=== PATIENT | female | born 1945 | race Caucasian/White ===

== ENCOUNTER 2016-08-25 11:31 | Outpatient (CLI) | payer MEDICARE, BC | END 2016-08-25 11:32 | disposition home or self-care (01) | DX: R05 Cough (principal); R09.02 Hypoxemia ==

== ENCOUNTER 2016-09-25 12:48 | Outpatient (CLI) | payer MEDICARE, BC | END 2016-09-25 12:49 | disposition home or self-care (01) | DX: R06.00 Dyspnea, unspecified (principal); J98.11 Atelectasis; K76.0 Fatty (change of) liver, not elsewhere classified; I51.7 Cardiomegaly ==

== ENCOUNTER 2016-10-11 08:58 | Outpatient (CLI) | payer MEDICARE, BC | END 2016-10-11 08:59 | disposition home or self-care (01) | LOC: RT 08:58 | PROVIDERS: ATTEND Internal Medicine | DX: M35.1 Other overlap syndromes (principal); R09.02 Hypoxemia; R06.00 Dyspnea, unspecified | CPT/HCPCS: 36415; 83880; 94010; 94664; 94729 ==

== ENCOUNTER 2016-11-11 15:29 | Outpatient (CLI) | payer MEDICARE, BC | END 2016-11-11 15:30 | disposition home or self-care (01) | LOC: SC 15:29 | PROVIDERS: ATTEND Internal Medicine Pulmonary Disease | DX: G47.10 Hypersomnia, unspecified (principal); G47.8 Other sleep disorders; R06.83 Snoring; G47.00 Insomnia, unspecified | CPT/HCPCS: 99203; G0463; 99212 ==

== ENCOUNTER 2016-12-09 19:27 | Outpatient (CLI) | payer MEDICARE, BC | END 2016-12-09 19:28 | disposition home or self-care (01) | LOC: SC 19:27 | PROVIDERS: ATTEND Internal Medicine Pulmonary Disease | DX: G47.33 Obstructive sleep apnea (adult) (pediatric) (principal) | CPT/HCPCS: 95810 ==

== ENCOUNTER 2016-12-24 13:51 | Outpatient (CLI) | payer MEDICARE, BC | END 2016-12-24 13:52 | disposition home or self-care (01) | LOC: SC 13:51 | PROVIDERS: ATTEND Nurse Practitioner Family | DX: G47.33 Obstructive sleep apnea (adult) (pediatric) (principal); R09.02 Hypoxemia | CPT/HCPCS: 99214; G0463; 99212 ==

== ENCOUNTER 2017-01-23 23:32 | Outpatient (CLI) | payer MEDICARE, BC | END 2017-01-23 23:33 | disposition home or self-care (01) | LOC: SC 23:32 | PROVIDERS: ATTEND Internal Medicine Pulmonary Disease | DX: G47.33 Obstructive sleep apnea (adult) (pediatric) (principal); R09.02 Hypoxemia | CPT/HCPCS: 95811 ==

== ENCOUNTER 2017-02-11 13:09 | Outpatient (CLI) | payer MEDICARE, BC | END 2017-02-11 13:10 | disposition home or self-care (01) | LOC: SC 13:09 | PROVIDERS: ATTEND Nurse Practitioner Family | DX: G47.33 Obstructive sleep apnea (adult) (pediatric) (principal); R09.02 Hypoxemia | CPT/HCPCS: 99214; G0463; 99212 ==

== ENCOUNTER 2017-02-14 12:59 | Outpatient (CLI) | payer MEDICARE, BC ==
[2017-02-14] MEDS ORDERED: IOPAMIDOL-300 100 ML VIAL ONE (13:17)
--- NOTE | 2017-02-16 09:13 | CT Report ---
EXAM: CT CHEST HIGH-RESOLUTION WITHOUT CONTRAST EXAM DATE: 02/14/2017 01:46 PM. CLINICAL HISTORY: Continued hypoxia and fatigue. COMPARISON: Chest CT 09/25/2016. TECHNIQUE: High-resolution CT was performed utilizing thin section imaging in supine and prone positi on. Multiaxial helical CT imaging was performed through the chest. IV contrast: None. Reconstructions : Coronal and sagittal. In accordance with CT protocol optimization, one or more of the following dose reduction techniques w ere utilized for this exam: automated exposure control, adjustment of mA and/or KV based on patient s ize, or use of iterative reconstructive technique. FINDINGS: Stable 4 mm calcified anterior right upper lobe lung nodule, series 7 image 31. Stable 3 mm posterolateral right lower lobe lung nodule, image 33. Calcified right middle lobe granuloma on coronal MIP image 17. Diskoid anterior right lower lobe atelectasis. There is air-trapping within both lower lobes on expiratory series. Mild diskoid posterior right lower lobe opacity persists on prone inspiratory imaging. Possible scarr ing. Borderline cardiomegaly. No pericardial effusion. No bulky mediastinal adenopathy. Within the visualized upper abdomen, note is made of diffuse fatty liver infiltration. Normal adrenal glands. Spleen is not enlarged. IMPRESSION: 1. Areas of air trapping in bilateral lower lobes. No underlying interstitial abnormality evident. Qu estion asthma or other cause. 2. Stable 4 mm right upper lobe and 3 mm right lower lobe lung nodules. Fleischner 2017 Society guide lines suggest no routine follow-up for low risk patient, however optional 12 month follow-up CT for h igh risk patient. 3. Fatty liver. [facility] Referring Provider Line: [phone] SITE ID: [id number]
== END 2017-02-14 13:00 | disposition home or self-care (01) ==
LOC: DI 12:59
PROVIDERS: ATTEND Internal Medicine
DX: R91.8 Other nonspecific abnormal finding of lung field (principal); K76.0 Fatty (change of) liver, not elsewhere classified
CPT/HCPCS: 71250

== ENCOUNTER 2017-03-30 13:51 | Outpatient (CLI) | payer MEDICARE, BC | END 2017-03-30 13:52 | disposition home or self-care (01) | LOC: SC 13:51 | PROVIDERS: ATTEND Nurse Practitioner Family | DX: G47.33 Obstructive sleep apnea (adult) (pediatric) (principal) | CPT/HCPCS: 99215; G0463; 99212 ==

== ENCOUNTER 2017-07-02 22:12 | Outpatient (CLI) | payer MEDICARE, BC | END 2017-07-02 22:13 | disposition home or self-care (01) | LOC: SC 22:12 | PROVIDERS: ATTEND Internal Medicine Pulmonary Disease | DX: G47.33 Obstructive sleep apnea (adult) (pediatric) (principal); R09.02 Hypoxemia | CPT/HCPCS: 95811 ==

== ENCOUNTER 2017-08-03 11:18 | Outpatient (CLI) | payer MEDICARE, BC | END 2017-08-03 11:19 | disposition home or self-care (01) | LOC: SC 11:18 | PROVIDERS: ATTEND Nurse Practitioner Family | DX: G47.33 Obstructive sleep apnea (adult) (pediatric) (principal); R09.02 Hypoxemia | CPT/HCPCS: 99214; G0463; 99212 ==

== ENCOUNTER 2018-04-06 13:14 | Outpatient (CLI) | payer MEDICARE, BC | END 2018-04-06 13:15 | disposition home or self-care (01) | LOC: SC 13:14 | PROVIDERS: ATTEND Nurse Practitioner Family | DX: G47.33 Obstructive sleep apnea (adult) (pediatric) (principal); R09.02 Hypoxemia | CPT/HCPCS: 99215; G0463; 99212 ==

== ENCOUNTER 2018-06-02 15:15 | Outpatient (CLI) | payer MEDICARE, BC | END 2018-06-02 15:16 | disposition home or self-care (01) | LOC: SC 15:15 | PROVIDERS: ATTEND Nurse Practitioner Family | DX: G47.33 Obstructive sleep apnea (adult) (pediatric) (principal); R09.02 Hypoxemia | CPT/HCPCS: 99214; G0463; 99212 ==

== ENCOUNTER 2019-07-04 10:38 | Outpatient (CLI) | payer MEDICARE, BC ==
[2019-07-04 11:40] VITALS: BP 136/80
--- NOTE | 2019-07-04 11:40 | SLEEP CARE CONSULTATION ---
Information from patient questionnaire entered by Olya Marques. I have reviewed and concur with the information entered by Olya Marques. This document represents the service I personally performed and the decisions made by me, Renuka Wright, RN, MSN, PRESIDENT. History of Present Illness Previous diagnosis: Mild (having problems getting supplies despite repeated attempts ), Obstructive Sleep Apnea-Hypopnea Syndrome AHI: 7.6 Reason for follow up: annual (last seen 2019) Equipment type: CPAP Equipment obtained from: [facility] [facility] Mask style: Nasal (Dreamwear) Mask brand: Respironics Backup mask available: No (keep current mask when replaced) Last cushion change: several months ago or more CPAP Compliance Data - Data Reviewed with Patient Average duration of nightly device use: 8.75 Compliance rate %: 96.1 (180 days) Current pressure setting (cmH2O): 8-12 Humidity settin Heated hose settin Average residual AHI: 0.9 Average large leak: 4 sec Subjective Missed days of use due to: reports: travel, other (power outage ) Patient concerns: reports: air blowing in eyes (mask dislodges in sleep), nasal congestion, dry mouth, nose, throat, other (intermittent tension headache for years. ). denies: aerophagia, mask discomfort, mask leak noise, condensation in mask/hose, epistaxis Observed to snore while using device: No Current pressure setting perceived as: comfortable On therapy, patient: reports: other (no change) Initial [place] Sleepiness Scale score: 6 Current [place] Sleepiness Scale score: 4 Allergies and Home Medications Known drug allergies: No Home medication list reviewed: Yes Allergy and home medication list: Medication Name (generic/name brand) Strength & Dosage Temazepam 15mg tab 1-2 at bedtime PRN Escitalopram 5mg tab one or two daily Atenolol 25mg tab daily Vitamin D3 6000Units daily Review of Systems Review of systems same as previous: No (dsypnea evaluated last fall) Physical Exam Blood Pressure: 136/80 Cuff size: long Heart Rate: 68 O2 Saturation: 96 Height: 5 ft 8 in Weight: 221 lb 12.8 oz Weight change since last visit: gained 12 pounds Body Mass Index: 33.7 BMI Classification: Obesity Class 1 Impression and Plan 1. Obstructive Sleep Apnea-Hypopnea Syndrome, mild, with good treatment compliance and good apnea control. On CPAP therapy, the patient has better sleep quality and is more rested overall. To prevent mask from dislodging, I gave her a sample adapted headgear for her mask to try. Since it is hard plastic is some parts which could be uncomfortable per patient, I also gave her Pad A cheek information if she cannot find the cloth covers that are supposed to come with the mask initially. Oral dryness could be from her opening her mouth during sleep per patient but not large mask leaks as generally seen with oral venting. Nasal congestion can be reduced with increasing the CPAP humidity as shown on sample device. The heated hose can be adjusted higher if condensation with higher humidity setting. Saline nasal spray sample was also given to use prior to CPAP to clear nasal secretions and wash off any nasal allergens to facilitate nasal breathing. In addition, a steamy shower before bed will often assist nasal drainage. Control of nasal congestion could reduce oral venting. For patient supply concerns. Patient was notified that another DME can be used. I will have my intake coordinator inform of DME options. A [facility] prescription will then be made. Patient advised to contact this office if further supply problems. Patient has gained weight. Currently patients BMI is 33.7 obesity class Obesity Class 1. Obesity increases the risk of apnea, CPAP pressure requirements and overall health risks especially cardiovascular and diabetes. Thus patient is advised to lose weight. Patient states she knows what to do to lose weight. I discussed how a diet consultation can be helpful in achieving optimal weight loss goals. Patient encouraged to discuss their weight loss goals with their PCP and consider a referral to a tufter hand. The patient's CPAP pressure range should accommodate some weight loss. Symptoms to report for additional pressure adjustment discussed. Patient's apnea severity and rationale for treatment to reduce apnea, improve sleep quality and reduce cardiovascular and cerebrovascular events was reviewed. I also reviewed the benefit of consistent device use of CPAP for hypertension, depression/anxiety. Since patient has more severe apnea in supine position, patient advised to avoid supine sleep with pillow positioning if unable to use CPAP while ill or if without electricity to reduce apnea risk. Patient intermittent headache does not seem to be due to CPAP mask, she states has been evaluated in past. Patient advised to follow up with PCP for further evaluation and guidelines for seeking care. * Continue CPAP pressure at 8-12 cmH2O * Transfer to new DME * Notify me if snoring with mask or feeling that the pressure is too much or too little * Attempt to lose weight * consider a tufter hand * Follow up with PCP re intermittent headache for guidelines * Call this office if any problems using CPAP * Return for follow up in 1 year , or sooner if concerns arise Time Spent with Patient (minutes): 35 I spent 100% of this visit face to face with the patient with greater than 50% of this was spent time counseling the patient and coordination of care.
== END 2019-07-04 10:39 | disposition home or self-care (01) ==
LOC: SC 10:38
PROVIDERS: ATTEND Nurse Practitioner Family
DX: G47.33 Obstructive sleep apnea (adult) (pediatric) (principal); E66.9 Obesity, unspecified; Z68.33 Body mass index [BMI] 33.0-33.9, adult
CPT/HCPCS: 99214; G0463; 99212

== ENCOUNTER 2019-07-18 07:03 | Outpatient (CLI) | payer MEDICARE ==
--- NOTE | 2019-07-19 11:03 | Ultrasound Report ---
Reason: ABNORMAL LEVELS OF OTHER SERUM ENZYMES Procedure Date: 07/18/2019 Accession Number: [id number] / [id number] Procedure: US - Abdomen Limited CPT Code: Final Report FULL RESULT: EXAM: ABDOMEN ULTRASOUND LIMITED, RUQ EXAM DATE: 07/18/2019 07:14 AM. CLINICAL HISTORY: ABNORMAL LEVELS OF OTHER SERUM ENZYMES. COMPARISON: CHEST W/O 02/14/2017 1:33 PM. TECHNIQUE: Real-time scanning was performed with static images obtained. FINDINGS: Liver: The parenchyma is echogenic diffusely. No definite focal masses are identified, but evaluation is limited secondary to the echogenicity. Enlarged right liver lobe, measuring 23 cm craniocaudal. Main portal vein flow: Hepatopetal. Gallbladder: Normal. No stones, wall thickening, or sonographic Maddox's sign. Biliary System: CBD measures 3 mm. No intrahepatic or extrahepatic ductal dilatation. Other: Right kidney measured 14.3 cm longitudinally and showed no evidence for hydronephrosis. A simple appearing inferomedial right renal cyst measured 9.1 x 8.6 x 7.2 cm. IMPRESSION: 1. Enlarged, fatty infiltrated liver. 2. Large simple right renal cyst. [facility]
== END 2019-07-18 07:04 | disposition home or self-care (01) ==
LOC: DI 07:03
PROVIDERS: ATTEND Internal Medicine
DX: K76.0 Fatty (change of) liver, not elsewhere classified (principal); N28.1 Cyst of kidney, acquired
CPT/HCPCS: 76705

== ENCOUNTER 2019-12-20 14:20 | Outpatient (CLI) | payer MEDICARE | END 2019-12-20 14:21 | disposition home or self-care (01) | LOC: COV 14:20 | PROVIDERS: ATTEND Family Medicine | DX: R06.02 Shortness of breath (principal); R53.83 Other fatigue; R19.7 Diarrhea, unspecified; R09.81 Nasal congestion; Z20.828 Contact with and (suspected) exposure to other viral communicable diseases ==

== ENCOUNTER 2021-11-22 08:00 | Outpatient (CLI) | payer MEDICARE ==
[2021-11-22 15:57] LABS: BASOPHILS # (AUTO) 0.1 10^3/uL (0.0-0.1); BASOPHILS % (AUTO) 1.5 %; EOSINOPHILS # (AUTO) 0.4 10^3/uL (0.0-0.7); EOSINOPHILS % (AUTO) 4.1 %; HCT - HEMATOCRIT 45.4 % (37.0-47.0); HGB - HEMOGLOBIN 14.9 g/dL (12.0-16.0); LYMPHOCYTES % (AUTO) 23.2 %; MEAN CORPUSCULAR HEMOGLOBIN 28.7 pg (27.0-31.0); MEAN CORPUSCULAR HGB CONC 32.8 g/dL (32.0-36.0); MEAN CORPUSCULAR VOLUME 87.5 fL (81.0-99.0); MONOCYTES # (AUTO) 0.6 10^3/uL (0.0-1.0); MONOCYTES % (AUTO) 6.9 %; NEUTROPHILS # (AUTO) 5.4 10^3/uL (1.5-6.6); NEUTROPHILS % (AUTO) 63.9 %; PLT - PLATELET COUNT 212 10^3/uL (130-450); RED BLOOD COUNT 5.19 10^6/uL (4.20-5.40); RED CELL DISTRIBUTION WIDTH 13.1 % (12.0-15.0); WHITE BLOOD COUNT 8.5 x10^3/uL (4.8-10.8)
[2021-11-22 16:20] LABS: THYROID STIMULATING HORMONE 3.07 uIU/mL (0.34-5.60)
[2021-11-22 16:22] LABS: FREE T4 (FREE THYROXINE) 0.8 ng/dL (0.58-1.64)
[2021-11-22 17:53] LABS: ALBUMIN 4.7 g/dL (3.2-5.5); ALBUMIN/GLOBULIN RATIO 1.6 (1.0-2.2); ALKALINE PHOSPHATASE 69 IU/L (42-121); ALT ALANINE AMINOTRANSFERASE 32 IU/L (10-60); AST ASPARTATE AMINOTRANSFERASE 30 IU/L (10-42); BILIRUBIN,TOTAL 0.8 mg/dL (0.2-1.0); BUN - BLOOD UREA NITROGEN 14 mg/dL (6-20); CHOLESTEROL 274 mg/dL; CREATININE 0.6 mg/dL (0.4-1.0); GFR - MDRD 98 (>89); HDL CHOLESTEROL 46 mg/dL; LDL CHOLESTEROL,CALCULATED 200 mg/dL; LDL/HDL RATIO 4.3 (<4.4); TOTAL PROTEIN 7.6 g/dL (6.7-8.2); TRIGLYCERIDES 139 mg/dL; VLDL CHOLESTEROL 28 mg/dL
[2021-11-22 18:13] LABS: CALCIUM 9.7 mg/dL (8.5-10.3); CARBON DIOXIDE - CO2 23 mmol/L (21-32); CHLORIDE 104 mmol/L (101-111); GLUCOSE 106 mg/dL (70-100); POTASSIUM 4.2 mmol/L (3.5-5.0); SODIUM 139 mmol/L (135-145)
[2021-11-22 19:13] LABS: ESTIMATED AVERAGE GLUCOSE 128 mg/dL (70-100); HEMOGLOBIN A1c% 6.1 % (4.27-6.07)
[2021-11-23 03:08] LABS: HCV AB <0.1 s/co ratio (0.0-0.9)
== END 2021-11-22 23:59 | disposition home or self-care (01) ==
LOC: LAB.R 08:00
PROVIDERS: ATTEND Internal Medicine
DX: Z00.00 Encounter for general adult medical examination without abnormal findings (principal); F32.A Depression, unspecified; E11.9 Type 2 diabetes mellitus without complications; R06.00 Dyspnea, unspecified; R74.8 Abnormal levels of other serum enzymes; I10 Essential (primary) hypertension; E03.9 Hypothyroidism, unspecified; R20.0 Anesthesia of skin; E66.9 Obesity, unspecified; G47.33 Obstructive sleep apnea (adult) (pediatric); J30.2 Other seasonal allergic rhinitis; Z11.59 Encounter for screening for other viral diseases
CPT/HCPCS: 80053; 80061; 82306; 82607; 83036; 83721; 83880; 84439; 84443; 85025; 86803

== ENCOUNTER 2022-02-25 08:00 | Outpatient (CLI) | payer MEDICARE ==
[2022-02-25 16:58] LABS: CHOL/HDL RATIO 5.7 (<4.4); CHOLESTEROL 233 mg/dL; HDL CHOLESTEROL 41 mg/dL; LDL CHOLESTEROL,CALCULATED 151 mg/dL; LDL/HDL RATIO 3.7 (<4.4); TRIGLYCERIDES 203 mg/dL; VLDL CHOLESTEROL 41 mg/dL
== END 2022-02-25 23:59 | disposition home or self-care (01) ==
LOC: LAB.R 08:00
PROVIDERS: ATTEND Internal Medicine
DX: I10 Essential (primary) hypertension (principal); Z79.899 Other long term (current) drug therapy
CPT/HCPCS: 80061; 83721

== ENCOUNTER 2022-08-15 15:43 | Outpatient (CLI) | payer MEDICARE ==
--- NOTE | 2022-08-15 17:19 | XRAY Report ---
PROCEDURE: Chest 2 View X-Ray INDICATIONS: DYSPNEA,HYPOXIA TECHNIQUE: 2 views of the chest were acquired. COMPARISON: None. FINDINGS: Surgical changes and devices: None. Lungs and pleura: No pleural effusions or pneumothorax. Lungs are clear. Mediastinum: Mediastinal contours are normal. Heart size is normal. Bones and chest wall: No suspicious bony abnormalities. Soft tissues appear unremarkable. IMPRESSION: No acute cardiopulmonary process. Reviewed by: Chris Lala on 08/15/2022 5:17 PM PDT Approved by: Chris Lala on 08/15/2022 5:17 PM PDT Station ID: [id number]
== END 2022-08-15 15:44 | disposition home or self-care (01) ==
LOC: DI 15:43
PROVIDERS: ATTEND Internal Medicine
DX: R06.00 Dyspnea, unspecified (principal); R09.02 Hypoxemia

== ENCOUNTER 2022-08-28 10:53 | Outpatient (CLI) | payer MEDICARE | END 2022-08-28 10:54 | disposition home or self-care (01) | LOC: LAB 10:53 | PROVIDERS: ATTEND Internal Medicine | DX: R06.00 Dyspnea, unspecified (principal); R09.02 Hypoxemia | CPT/HCPCS: 36415; 85379 ==

== ENCOUNTER 2022-08-29 14:03 | Outpatient (CLI) | payer MEDICARE ==
[2022-08-29 14:32] LABS: CREATININE 0.6 mg/dL (0.4-1.0)
[2022-08-29] MEDS ORDERED: iohexoL-300 100 ML VIAL ONE (15:28)
--- NOTE | 2022-08-29 16:23 | CT Report ---
PROCEDURE: ANGIO CHEST W/WO INDICATIONS: POSITIVE D DIMER. Shortness of breath. CONTRAST: 80ml omni 300 TECHNIQUE: After the administration of intravenous contrast, 2 mm axial images were acquired from the pulmonary apices to the posterior costophrenic angles during the arterial phase. In addition, 1 mm lung kernel and 5 mm soft tissue kernel reconstructions were performed. 3-dimensional coronal oblique maximum int ensity projection (MIP) reformats, 8 mm axial MIP, and 5 mm coronal and sagittal MPR reformats were t hen performed through the thorax. For radiation dose reduction, the following was used: automated exp osure control, adjustment of mA and/or kV according to patient size. COMPARISON: CT 02/14/2017 FINDINGS: Image quality: Excellent. Large vessels: No filling defect within the opacified pulmonary arteries. No evidence of acute aortic syndrome. No thoracic aortic aneurysm. Lungs and pleura: No pleural effusions. No pneumothorax. Scattered mm solid nodules, stable since , statistically benign. Mediastinum: Heart size is enlarged. No pericardial effusions. No mediastinal adenopathy by size crit eria. Moderate coronary artery calcifications Chest wall and lower neck: Thyroid is unremarkable. No axillary or supraclavicular adenopathy by size . Bones: No aggressive osseous abnormality. Upper Abdomen: Marked hepatic steatosis. IMPRESSION: No pulmonary embolus. Marked hepatic steatosis. Findings were discussed with provider at time of dictation. Reviewed by: Chris Lala on 08/29/2022 4:21 PM PDT Approved by: Chris Lala on 08/29/2022 4:21 PM PDT Station ID: [id number]
[2022-08-29] MEDS ORDERED: iohexoL-300 100 ML VIAL IVP ONE (16:30)
== END 2022-08-29 14:04 | disposition home or self-care (01) ==
LOC: DI 14:03
PROVIDERS: ATTEND Internal Medicine
DX: R79.1 Abnormal coagulation profile (principal); Z79.899 Other long term (current) drug therapy; K76.0 Fatty (change of) liver, not elsewhere classified
CPT/HCPCS: 36415; 71275; 82565; Q9967

== ENCOUNTER 2022-10-01 10:54 | Outpatient (CLI) | payer MEDICARE ==
[2022-10-01 11:28] LABS: ABG BASE EXCESS -0.9 mmol/L (-2.0-3.0); ABG OXYGEN SATURATION 95 % (94-98); ABG PCO2 36 mmHg (34-45); ABG PH 7.42 (7.35-7.45); ABG PO2 74 mmHg (80-100); ABG TCO2 24.1 MMOL/L (21.0-29.0)
== END 2022-10-01 10:55 | disposition home or self-care (01) ==
LOC: RT 10:54
PROVIDERS: ATTEND Internal Medicine
DX: R09.02 Hypoxemia (principal)
CPT/HCPCS: 82803; 94010; 94729

== ENCOUNTER 2022-11-04 14:51 | Outpatient (CLI) | payer MEDICARE | END 2022-11-04 14:52 | disposition home or self-care (01) | LOC: DI 14:51 | PROVIDERS: ATTEND Internal Medicine | DX: R06.00 Dyspnea, unspecified (principal); I49.1 Atrial premature depolarization; I51.7 Cardiomegaly; I34.0 Nonrheumatic mitral (valve) insufficiency; I34.81 Nonrheumatic mitral (valve) annulus calcification; I77.810 Thoracic aortic ectasia | CPT/HCPCS: 93306 ==

== ENCOUNTER 2023-09-11 15:24 | Outpatient (CLI) | payer MEDICARE ==
--- NOTE | 2023-09-11 16:29 | Sleep Patient Instructions ---
Sleep Center Visit Summary - Patient Visit Information Reason for Visit: Initial consult for evaluation of sleep disordered breathing and other sleep issues. - Patient Instructions Additional Instructions: You will be completing a sleep study an in-lab polysomnography (PSG). You will follow-up in the sleep care office after the sleep study is completed to hear the results and talk about therapy, if needed. You will be called by our office staff to schedule this appointment, but you may contact us with any questions. - Clinic Information Contact: [facility] [address] [place] [address] [email or web address] T: [phone]
--- NOTE | 2023-09-11 16:39 | SLEEP CARE CONSULTATION ---
Information from patient questionnaire entered by Amilcar Hull. I have reviewed and concur with the information entered by Amilcar Hull. This document represents the service I personally performed and the decisions made by me, Lata De Los Santos ARNP. History of Present Illness Service Date and Time: 09/11/2023 1524 Reason for Visit: New patient Chief Complaint: reports: Other (Doctor referral - chronic low blood oxygen) Date of Onset: 7 years Usual bedtime: 8:00 PM? Time it takes to fall asleep: 45 minutes Snores at night: Yes (If not using CPAP) Sleeps alone due to snoring: No Number of times waking at night: 2 - 3 Reasons for waking at night: reports: Bathroom, Other (Unknown reason) Toss, Turn, or Twitch while sleeping: No Recalls having dreams: Yes Usually gets out of bed at: 7:00 AM Feels refreshed in the morning: No Morning headache: Yes (Sometimes does not resolve) Sleepy or fatigued during the day: Yes Ever fallen asleep while driving: No Takes day naps: No (Sometimes) Dreams during day naps: No Prior sleep studies: Yes Year and Where: 2016 and 2017 [facility] Type of Sleep Study: Polysomnography Additional HPI information: EM MANJARREZ was previously diagnosed to have mild, AHI 7.6, obstructive sleep apnea-hypopnea syndrome in sleep study dated 12/21/2016 and comes in today to re- establish care for CPAP therapy. She was referred back here because her doctor is concerned about chronic low blood oxygen and feels she needs a new sleep study. - Parasomnia Symptoms Ever been unable to move upon waking from sleep: No Walks in sleep: No Talks in sleep: No Ever acted out dreams in sleep: No Ever felt weak in the knees when startled or emotional: No Bothered by creepy, crawly, restless sensations in legs: No Problems with memory or concentration: Yes CPAP Compliance Data - Data Reviewed with Patient Average duration of nightly device use: 11 hours 27 mins Compliance rate %: 98.3 (180/180 days used) Current pressure setting (cmH2O): 8-12 (avg 9, max 12) Average residual AHI: 0.7 Average large leak: 0 Compliance data discussion: She has a Dreamstation that has not been recertified. She has been getting her supplies online because she did not like dealing with [facility]. She is using a nasal cushion mask, DreamWisp. Subjective Patient concerns: reports: mask discomfort (bothers back of head), mask leak noise, dry mouth, nose, throat (using humidifier). denies: aerophagia, air blowing in eyes, condensation in mask/hose, nasal congestion, epistaxis Observed to snore while using device: No Current pressure setting perceived as: comfortable On therapy, patient: reports: other (does not feel her fatigue is due to the CPAP; always uses her CPAP). denies: drowsiness while driving Initial [place] Sleepiness Scale score: 6 (in 2016) Current [place] Sleepiness Scale score: 7 (in 2023) Past Medical History Past Medical History: reports: Hypertension, Diabetes, Arthritis, Depression Social History The patient is retired. Patient is and lives in [place]. Have you smoked in the past 12 months: No Alcohol use: Yes Alcohol amount and frequency: Less than 1 per day Caffeine use: Yes Caffeine amount and frequency: 2 - 4 cups daily (green tea and coffee) Family History Family history of sleep disordered breathing: No Allergies and Home Medications Known drug allergies: No Drug allergies reviewed: Yes Home medication list reviewed: Yes (as listed) Allergy and home medication list: Allergies No Known Drug Allergies Allergy (Verified 09/09/23 16:25) Home Medications Medication Instructions Recorded Confirmed Last Taken Type Atenolol 50 mg PO DAILY 04/07/14 09/11/23 04/09/14 History Cholecalciferol (Vitamin D3) 2,000 units PO DAILY 04/07/14 09/11/23 04/06/14 History [Vitamin D] Temazepam [Restoril] 7.5 mg PO DAILY 04/07/14 09/11/23 04/08/14 History Escitalopram See Rx Instructions .ROUTE .COMPLEX 09/11/23 09/11/23 Unknown History Jardiance See Rx Instructions .ROUTE .COMPLEX 09/11/23 09/11/23 Unknown History Review of Systems Cardiovascular: reports: high blood pressure (Controlled) Respiratory: reports: shortness of breath, sputum production Urinary: reports: incontinence Neurological: reports: headaches, gait or balance problems Ear/Nose/Throat: reports: dry mouth/throat Endocrine: reports: sluggishness (/tired) Musculoskeletal: reports: joint pain (/stiffness), back pain, mobility problems Physical Exam Vital signs obtained and entered by: Lata Ghotra NP Blood Pressure: 137/82 Cuff size: long (left arm) Heart Rate: 67 O2 Saturation: 92 Height: 5 ft 7 in Weight: 214 lb 12.8 oz Weight change since last visit: 7 lb loss Body Mass Index: 33.6 BMI Classification: Obese Neck circumference: 15.25 Heart: regular rate and rhythm Lungs: clear bilaterally Impression and Plan 1. Obstructive Sleep Apnea-Hypopnea Syndrome, mild, with good treatment compliance and good apnea control. Patient states she uses her machine all the time and so she does not know if she sleeps better with or without it. She does feel it does something for her and uses it regularly. She does have significant improvement of her sleep apnea with using her CPAP with current settings of 8 to 12 cm H2O. She has been obtaining her supplies online because she felt that her last DME was "a racket ". She does have a DreamStation that may be on the recall that she has not registered. She has not had any issues and denies seeing any any black particles in the machine or tubing. Her machine was last updated in 2017. I will write a prescription to update her CPAP but she would like to find a source online to fill that prescription. She will contact us if she has any difficulties or decides to go with a local DME supplier. I am going to order a verifying PSG to get a new baseline and see if there has been any changes since her last study. She agreed with plan of care. Patient's apnea severity and rationale for treatment to reduce apnea, improve sleep quality and reduce cardiovascular and cerebrovascular events was reviewed. I also reviewed the benefit of consistent device use of CPAP for hypertension, diabetes, depression. 2. Obesity, unspecified. Currently patients BMI is 33.6. Obesity increases the risk of apnea, CPAP pressure requirements and overall health risks especially cardiovascular and diabetes. Thus patient is advised to lose weight. * Continue auto CPAP pressure at 8-12 cmH2O * Update machine * PSG to verify diagnosis and severity * Notify me if snoring with mask or feeling that the pressure is too much or too little * Attempt to lose weight * Call this office if any problems using CPAP * Return for follow up after sleep study and for compliance on new device if needed, or sooner if concerns arise Continue with device pressure at (cmH2O): 8-12 Counseling Topics: Weight loss health impact Plan: PSG and followup; follow up with new device as needed Visit Type: In Office Time Spent with Patient (minutes): 44 Provider Statement: I spent 100% of the Face to Face Visit with the patient with greater than 50% spent counseling the patient and coordination of care.
[2023-09-11 16:45] VITALS: BP 137/82; O2SAT 92
== END 2023-09-11 15:25 | disposition home or self-care (01) ==
LOC: SC 15:24
PROVIDERS: ATTEND Nurse Practitioner Family
DX: G47.33 Obstructive sleep apnea (adult) (pediatric) (principal)
CPT/HCPCS: 99203; G0463; 99212

== ENCOUNTER 2023-09-29 19:24 | Outpatient (CLI) | payer MEDICARE | END 2023-09-29 19:25 | disposition home or self-care (01) | LOC: SC 19:24 | PROVIDERS: ATTEND Nurse Practitioner Family | DX: G47.33 Obstructive sleep apnea (adult) (pediatric) (principal); F32.A Depression, unspecified; E11.9 Type 2 diabetes mellitus without complications; I10 Essential (primary) hypertension | CPT/HCPCS: 95810 ==

== ENCOUNTER 2023-10-16 08:07 | Day surgery (SDC) | payer MEDICARE ==
[2023-10-16] MEDS: LACTATED RINGERS 1,000 ML IV ONE ×2 (08:36→11:23)
--- NOTE | 2023-10-16 09:47 | ANESTHESIA ---
Pre-Anesthesia VS, & Labs - Diagnosis screening - Procedure colonoscopy Height: 5 ft 7 in Weight (kg): 94 kg Body Mass Index: 32.4 BMI Classification: Obese - NPO >8 hours - Is Patient ?: No - Lab Results Current Lab Results: Laboratory Tests 10/16/23 08:33: POC Whole Bld Glucose 175 H Home Medications and Allergies Atenolol 50 mg PO DAILY 04/07/14 Cholecalciferol (Vitamin D3) [Vitamin D] 2,000 units PO DAILY 04/07/14 Temazepam [Restoril] 7.5 mg PO DAILY 04/07/14 Escitalopram See Rx Instructions .ROUTE .COMPLEX 09/11/23 Jardiance See Rx Instructions .ROUTE .COMPLEX 09/11/23 Allergies/Adverse Reactions: Allergies Allergy/AdvReac Type Severity Reaction Status Date / Time No Known Drug Allergies Allergy Verified 10/15/23 13:39 Anes History & Medical History - Anesthetic History Anesthesia Complications: reports: No previous complications Family history of Anesthesia Complications: Denies Family history of Malignant Hyperthermia: Denies - Medical History Cardiovascular: reports: Hypertension Pulmonary: reports: Pneumonia, Shortness of breath, Sleep apnea, CPAP use Gastrointestinal: reports: Hiatal hernia, Hemorrhoids, Other Urinary: reports: Incontinence, Other Neuro: reports: None Musculoskeletal: reports: Rheumatoid arthritis, Chronic back pain, Other Endocrine/Autoimmune: reports: Type 2 diabetes, HyPOthyroidism (pt denies) Skin: reports: Other Smoking Status: Never smoker Psychosocial: reports: No issues indicated History of Cancer?: No - Surgical History General: reports: Colonoscopy, Other Eyes Ears Nose Throat (EENT): reports: Tonsil/Adenoidectomy Gynecologic: reports: section, Dilation and currettage Orthopedic: reports: Knee replacement, Arthroscopic surgery Exam General: Alert, Oriented x3, Cooperative Dental: WNL Mouth Openin Fingerbreadth Neck Mobility: Normal Mallampati classification: II Thyromental Distance: less than 4 cm Respiratory: Lungs clear Cardiovascular: Regular rate Plan Anesthesia Type: General, Total IV Consent for Procedure(s) Verified and Reviewed: Yes Code Status: Attempt Resuscitation ASA classification: 2-Mild systemic disease Is this case an emergency?: No
[2023-10-16] MEDS ORDERED: PROPOFOL 500 MG/50 ML 500 MG/50 ML VIAL ONE ×2 (10:11→11:03)
[2023-10-16] MEDS ORDERED: LIDOCAINE-MPF 2% 5 ML VIAL ONE (10:11)
[2023-10-16 11:39] VITALS: BP 125/82; O2SAT 92
--- NOTE | 2023-10-16 13:44 | ANESTHESIA POST OP EVALUATION ---
Anesthesia Post Eval - Post Anesthesia Eval Vitals: Last Vital Signs Temp 36.2 C L 10/16/23 11:23 Pulse 61 10/16/23 11:37 Resp 13 10/16/23 11:37 BP 125/82 H 10/16/23 11:37 Pulse Ox 92 10/16/23 11:37 O2 Flow Rate CV Function Including HR & BP: Stable Pain Control: Satisfactory Nausea & Vomiting: Negative Mental Status: Baseline Respiratory Status: Airway Patent Hydration Status: Satisfactory Anesthesia Complications: None
== END 2023-10-16 08:08 | disposition home or self-care (01) ==
LOC: SDS 08:07
PROVIDERS: ATTEND Surgery
PROC: 0DBM8ZZ Excision of Descending Colon, Via Natural or Artificial Opening Endoscopic (ICD-10-PCS; principal; 2023-10-16 09:30)
DX: Z12.11 Encounter for screening for malignant neoplasm of colon (principal); D12.4 Benign neoplasm of descending colon; K57.30 Diverticulosis of large intestine without perforation or abscess without bleeding; E66.9 Obesity, unspecified; Z68.32 Body mass index [BMI] 32.0-32.9, adult; E11.9 Type 2 diabetes mellitus without complications; Z79.84 Long term (current) use of oral hypoglycemic drugs; G47.30 Sleep apnea, unspecified
CPT/HCPCS: 45380; J7120

== ENCOUNTER 2023-11-10 09:13 | Outpatient (CLI) | payer MEDICARE ==
--- NOTE | 2023-11-10 09:55 | Sleep Patient Instructions ---
Sleep Center Visit Summary - Patient Visit Information Reason for Visit: Sleep study follow-up - Patient Instructions Additional Instructions: You were here for follow up of verifying sleep study which showed mild LUCA. You will be continued on CPAP therapy with pressure at 8-12 cmH2O. We are updating your CPAP, please call us to set up a follow up. We are also setting you up with a new DME and mask refitting. We need to see you a month after using your new CPAP. You may contact us sooner for any questions or concerns. - Clinic Information Contact: [facility] [address] [place] [id number] [email or web address] T: [phone]
--- NOTE | 2023-11-10 10:12 | SLEEP CARE CONSULTATION ---
Information from patient questionnaire entered by Aria Kulkarni. I have reviewed and concur with the information entered by Aria Kulkarni. This document represents the service I personally performed and the decisions made by , Angel De Los Santos ARNP. History of Present Illness Service Date and Time: 11/10/2023912 Initial [place] Sleepiness Scale score: 6 (in 2017) Current [place] Sleepiness Scale score: 9 (11/10/23) Additional HPI information: EM MANJARREZ returns for follow up and results of the recently performed polysomnography on 09/29/2023. I explained the pathophysiology behind obstructive sleep apnea. We then spent quite a bit of time discussing different treatment options. For mild obstructive sleep apnea, surgery and oral appliance are alternatives to nasal CPAP therapy but in moderate or severe cases, nasal CPAP is the most effective and reliable treatment. I reviewed the impact of weight changes on sleep apnea and strongly recommended losing weight. The patient will continue with the nasal CPAP therapy set at 8-12 cmH20 will be ordered with rationale explained. Patient was cautioned about risks of drowsy driving until sleepiness symptoms resolve. Sleep Study - Results Type of Sleep Study: Polysomnography (COMPLETED 09/29/23) Prior sleep studies: Yes Year and Where: 2016 and 2018 [facility] Polysomnography/Home Sleep Study results: IMPRESSION: The quality of the study is good. The patient had reduced sleep efficiency due to prolonged awakenings during the night. The sleep architecture was abnormal for sleep fragmentation and reduced amount of time spent in REM and slow wave sleep (N3). Respiratory monitoring showed mild obstructive sleep apneahypopnea (AHI = 13.8) associated with frequent arousals, oxyhemoglobin desaturation and moderate hypoxia (charlene oxygen saturation of 79%). The respiratory events occurred almost exclusively during supine sleep (supine AHI = 21.9; non-supine = 0.43). Snore was light to moderate in intensity. There was no significant periodic leg movement of sleep. Cardiac rhythm was normal sinus rhythm without significant arrhythmia. No abnormal behavior (parasomnia) observed during the night. Allergies and Home Medications Known drug allergies: No Drug allergies reviewed: Yes Home medication list reviewed: Yes (Jardiance) Allergy and home medication list: Allergies No Known Drug Allergies Allergy (Verified 10/30/23 13:21) Review of Systems Review of systems same as previous: Yes (NO CHANGE) Physical Exam Vital signs obtained and entered by: ANGEL GIRON Blood Pressure: 140/82 (RIGHT ARM) Cuff size: long Heart Rate: 67 O2 Saturation: 95 Height: 5 ft 7 in Weight: 213 lb Body Mass Index: 33.3 BMI Classification: Obese Impression and Plan 1. Obstructive Sleep Apnea-Hypopnea Syndrome, mild, with lowest oxygen saturation of 79%. Continuing with positive pressure therapy could benefit hypertension, diabetes and depression. The patient will be continued on nasal autoCPAP therapy with pressure set at 8-12 cmH2O. Compliance guidelines also reviewed. On CPAP therapy, the patient has better sleep quality and is more rested overall. Patient needs a new CPAP supplier for supplies and machine. I will have my quality coordinator inform of DME options. A DWO prescription will then be made. The patients CPAP is over 5 years old and of reasonable use. Thus, the CPAP will be updated. A DWO prescription will be made. Compliance guidelines for new device and follow up discussed. Patient's apnea severity and rationale for treatment to reduce apnea, improve sleep quality and reduce cardiovascular and cerebrovascular events was reviewed. 2. Hypoxemia, moderate, with a charlene oxygen saturation of 79% and 259 minutes spent under 90%. The baseline oxygen saturation was normal with a low average oxygen saturation of 88%. She is to follow up with her mechanical engineering intern for further evaluation and treatment as needed. 2. Obesity, unspecified. Currently patients BMI is 33.3. Obesity increases the risk of apnea, CPAP pressure requirements and overall health risks especially cardiovascular and diabetes. Thus patient is advised to lose weight. * Continue auto CPAP pressure at 8-12 cmH2O * Transfer DME * Update machine * Notify me if snoring with mask or feeling that the pressure is too much or too little * Attempt to lose weight * Call this office if any problems using CPAP * Return for follow up one month after obtaining new machine, or sooner if concerns arise Counseling Topics: Weight loss health impact Prescriptions: Auto CPAP, Device supplies (with transfer of DME and mask refitting) Plan: New CPAP and compliance follow up Visit Type: In Office Time Spent with Patient (minutes): 32 Provider Statement: I spent 100% of the Face to Face Visit with the patient with greater than 50% spent counseling the patient and coordination of care.
[2023-11-10 13:00] VITALS: BP 140/82; O2SAT 95
== END 2023-11-10 09:14 | disposition home or self-care (01) ==
LOC: SC 09:13
PROVIDERS: ATTEND Nurse Practitioner Family
DX: G47.33 Obstructive sleep apnea (adult) (pediatric) (principal); R09.02 Hypoxemia; E66.9 Obesity, unspecified; Z68.33 Body mass index [BMI] 33.0-33.9, adult
CPT/HCPCS: 99213; G0463; 99212